=== PATIENT | female | born 1975 | race Caucasian/White ===

== ENCOUNTER 2020-11-18 15:54 | Emergency (ER) | payer MEDICARE ==
[2020-11-18] MEDS ORDERED: Morphine 4 MG/ML VIAL ONE ×2 (16:15→17:45)
[2020-11-18] MEDS ORDERED: cefTRIAXone\\ROCEPHIN 1 GM VIAL ONE (19:34)
== END 2020-11-18 20:00 | disposition home or self-care (01) ==
LOC: CSHERS 15:54
DX: Z46.6 Encounter for fitting and adjustment of urinary device (principal); F17.210 Nicotine dependence, cigarettes, uncomplicated
CPT/HCPCS: 96374; 96375; J0696; J2270

== ENCOUNTER 2022-07-25 09:43 | Outpatient (CLI) | payer MEDICARE | END 2022-07-25 09:44 | disposition home or self-care (01) | LOC: CSHMAMMO 09:43 | PROVIDERS: ATTEND Family Medicine | DX: Z12.31 Encounter for screening mammogram for malignant neoplasm of breast (principal) | CPT/HCPCS: 77063; 77067 ==

== ENCOUNTER 2023-08-03 11:05 | Outpatient (CLI) | payer MEDICARE | END 2023-08-03 11:06 | disposition home or self-care (01) | LOC: CSHMAMMO 11:05 | PROVIDERS: ATTEND Family Medicine | DX: Z12.31 Encounter for screening mammogram for malignant neoplasm of breast (principal); Z85.71 Personal history of Hodgkin lymphoma; Z85.42 Personal history of malignant neoplasm of other parts of uterus | CPT/HCPCS: 77063; 77067 ==

== ENCOUNTER 2024-08-05 12:39 | Outpatient (CLI) | payer MEDICARE, OTHER | END 2024-08-05 12:40 | disposition home or self-care (01) | LOC: CSHMAMMO 12:39 | PROVIDERS: ATTEND Family Medicine | DX: Z12.31 Encounter for screening mammogram for malignant neoplasm of breast (principal); Z85.42 Personal history of malignant neoplasm of other parts of uterus; Z85.71 Personal history of Hodgkin lymphoma | CPT/HCPCS: 77063; 77067 ==